=== PATIENT | male | born 1970 | race Caucasian/White ===

== ENCOUNTER 2019-10-13 10:18 | Emergency (ER) | payer OTHER, SELFPAY ==
[2019-10-13 10:19] VITALS: BP 150/99; PULSE 117; RESP 16; TEMP 36.3; O2SAT 96; BMI 33.0
[2019-10-13 10:41] LABS: Absolute Lymphocyte Count 1.56 X10^3/uL (0.83-4.51); Basophil# 0.04 X10^3/uL; Basophil% 0.8 % (0-1); Eosinophil# 0.01 X10^3/uL; Eosinophils% 0.2 % (0-5); Hematocrit 45.4 % (40-54); Hemoglobin 16.5 g/dL (13.0-16.5); Lymphocyte # 1.56 X10^3/ul (4.0); Lymphocyte % 29.8 % (19-41); Mean Corp Hgb Conc 36.3 g/dL (32-36); Mean Corpuscular Hgb 32.3 pg (27.0-32.0); Mean Corpuscular Volume 88.8 fL (80-94); Mean Platelet Vol. 11.3 fl (6.2-12.0); Monocyte# 0.57 X10^3/uL; Monocyte% 10.9 % (0-10); NRBC Flagged by Analyzer 0 % (0-5); Neutrophil # 3.04 X10^3/uL (2.7-7.7); Neutrophil % 58.1 % (47-70); Platelet Count 163 K/mm3 (150-450); RBC Distribution Width CV 12.5 % (11.6-14.6); RBC Distribution Width SD 41.1 fl (35.1-43.9); Red Blood Count 5.11 M/mm3 (4.6-6.2); White Blood Count 5.2 K/mm3 (4.4-11.0)
[2019-10-13 10:45] LABS: Bedside Glucose 297 mg/dL (70-110)
--- NOTE | 2019-10-13 10:48 | ED.DCSUM_ITS ---
- ER Visit Summary Date of Service: 10/13/19 Chief Complaint: Elevated blood sugar History of Present Illness: The patient is a 49 M history of insulin-dependent diabetes, hypertension high cholesterol. Patient states that he is unable to afford his insulin and has not taken it for about a month. His blood sugars have been running high. He has been taking his metformin and other medications. Today went to the urgent care his blood sugar was there reportedly 361 and he sent him to the emergency department. He denies any vomiting or diarrhea. He denies any fever. He denies any other complaints. Says he has had about a 10 pound weight loss in the last month. Physical Examination: Middle-aged male no acute distress vital signs are stable afebrile. H EENT exam unremarkable. Neck nontender no lymphadenopathy. Lungs clear to auscultation bilaterally. Heart tachycardic rate about 110 no murmur. Chest were nontender. Abdomen soft nontender. Normal bowel sounds. Patient is moving all 4 extremities. Neurovascularly intact. Calves are nontender without edema. Back nontender. Skin unremarkable. Neurologically is awake and alert with no focal motor deficits. He does have a an abrasion to his right lower barba but no signs of infection currently. Test Results: BC normal white count of 5. Hemoglobin 16. Chemistries sodium 132. Gap at 9. Glucose 319. Normal creatinine. Serum ketones negative. GGT was 297. Emergency Department Course and Treatment: Patient be treated with a liter of normal saline. Screening labs in serum ketones to be obtained. Repeat exam patient is doing well. Will receive his liter of fluid and social research assistant will talk to him about possibly a plan to help him get his insulin. He does have insurance he says just the co-pays and deductibles make it hard for him to afford his medications. Treatment Plan: Outpatient follow-up with primary care physician. Watch his blood sugars closely. Disposition: Discharge Impression: Acute hyperglycemia History of insulin-dependent diabetes History of medical noncompliance due to financial concerns This note was generated with [employer] dictation software. It may contain incorrect words, spelling, and punctuation that were not noted in review of the chart prior to signing ED Disposition - Plan for ED Patient: Referrals: Ricco Markham PA [PHYSICIAN VICE PRESIDENT DIGITAL STRATEGIST] -
[2019-10-13] MEDS: 0.9% Normal Saline 1,000 ML 1000 ML IV (10:53)
[2019-10-13 10:57] LABS: Anion Gap 9 (5-15); BUN 14 mg/dL (7-18); BUN/Creat Ratio 13.6 RATIO (10-20); Chloride 94 mmol/L (98-107); Creatinine, Serum 1.03 mg/dL (0.70-1.30); EST Glomerular Filtration Rate 81 mL/min (>60); Est Glom Filt Rate - Afr Amer 99 mL/min (>60); Glucose 319 mg/dL (74-106); Potassium 3.7 mmol/L (3.5-5.1); Sodium Level 132 mmol/L (136-145)
--- NOTE | 2019-10-13 11:05 | ED.DEP ---
ED Disposition - Plan for ED Patient: Disposition: Home or Assisted Living Instructions: ED Diabetic Hyperglycemia Referrals: Ricco Markham PA [PHYSICIAN ASPNET DEVELOPER] - As soon as possible Additional Instructions: Follow-up with your primary care provider soon as possible they may will work with you to figure out how you can get your insulin or adjust your medications. Check your blood sugars at least twice daily.
[2019-10-13 13:34] VITALS: BP 147/89; PULSE 99; RESP 16; O2SAT 99
--- NOTE | 2019-10-13 13:35 | CM.ED ---
Social Work Consult: Resources Informant: Dr. Burden Met with patient in room. Introduced self and social professionals role. Patient agreeable to speaking with this social professionals. Patient lives at home with spouse and works full-time at [employer]. Patient states main concern today is being able to afford co-pays for insulin. Patient states to be working with a social professionals at [facility] but to have only spoken to the social professionals ones. This social professionals providing patient with prescription assistance programs/options. Patient thanking this social professionals. Patient denies having a HCPOA and declines information on advanced directives. No further needs identified. Rachel LIVE, KELLEN
== END 2019-10-13 13:39 | disposition home or self-care (01) ==
PROVIDERS: Emergency Provider Emergency Medicine; PCP Family Medicine
DX: E11.65 Type 2 diabetes mellitus with hyperglycemia (principal); I10 Essential (primary) hypertension; E78.00 Pure hypercholesterolemia, unspecified; Z91.14 Patient's other noncompliance with medication regimen; Z79.4 Long term (current) use of insulin; Z79.899 Other long term (current) drug therapy
CPT/HCPCS: 80048; 82009; 82962; 85025; 96360; 99283; J7030; A4216